=== PATIENT | male | born 1965 | race Caucasian/White ===

== ENCOUNTER 2024-11-29 13:26 | Emergency (ER) | payer OTHER, SELFPAY ==
[2024-11-29 13:27] VITALS: BP 139/113; PULSE 74; RESP 16; TEMP 37.1; O2SAT 99; BMI 33.7
--- NOTE | 2024-11-29 13:44 | CT_ITS ---
PROCEDURE: ABDOMEN/PELVIS WITHOUT CONT 11/29/2024 REASON FOR EXAM: LLQ ABDOMINAL PAIN TECHNIQUE: Abdomen and pelvis CT without intravenous contrast. Noncontrast technique limits evaluation of the abdominal and pelvic viscera. Coronal and Sagittal reconstruction series were provided. One or more dose reduction techniques were used (e.g., Automated exposure control, adjustment of the mA and/or kV according to patient size, use of iterative reconstruction technique). PATIENT PREPARATION: Per protocol ORAL CONTRAST TYPE: None. AMOUNT: mL COMPARISON: None. FINDINGS: The peripheral soft tissues unremarkable. Degenerative changes of the spine. Grade 1 anterolisthesis of L5 on S1 with a bilateral L5 pars defect. Mild atherosclerosis. Normal caliber abdominal aorta. No suspicious lymphadenopathy. Hepatomegaly and hepatic steatosis. Distended gallbladder. The spleen and adrenals are unremarkable. Left ureterovesicular junction 4 mm calculus with mild upstream hydroureteronephrosis. Left perinephric stranding which may represent back pressure, but infection can not be excluded.. Additional small nonobstructive bilateral renal calculi. Normal caliber large and small bowel. Dense colonic stool. CT/Abdomen/Pelvis without Cont IMPRESSION: Left distal ureter 4 mm calculus with mild upstream hydroureteronephrosis. Left kidney perinephric stranding which may represent back pressure, but pyelon ephritis can not be excluded. Additional bilateral nephrolithiasis. Dense colonic stool which may suggest constipation. Hepatomegaly and hepatic steatosis. Reading Location: [place] [id number]
--- NOTE | 2024-11-29 13:44 | EDS_ITS ---
HPI History of Present Illness Chief Complaint: Flank Pain Detail of Chief Complaint: Left lower quadrant abdominal pain Informant: patient and family Narrative Narrative: Patient presents to the emergency department with complaint of left lower quadrant pain that started yesterday initially. This morning it was not so severe but became progressively more painful. Currently rates pain a 9 out of 10. Patient had some nausea and vomiting yesterday but none today. He has history of kidney stones. He thinks he passed a stone about 4 weeks ago. He has passed about 4 stones in his lifetime. He does not see a urologist. He denies hematuria or dysuria. He denies fever. Patient also has history of diverticulitis. Denies prior abdominal surgeries. [facility] Medical History (Updated 11/29/24 @ 15:[address] Sharon Lara, DO) Depression High cholesterol Home Medications ?Medication ?Instructions ?Recorded ?Last Taken ?Type Pravastatin 10 mg DAILY 02/25/16 Unknown History aspirin 81 mg tablet,delayed 81 mg PO DAILY 02/26/16 U nknown History release (Adult Low Dose Aspirin) ondansetron 4 mg disintegrating 4 mg PO Q8H PRN PRN Na usea #10 tabs 02/26/16 Unknown Rx tablet oxycodone-acetaminophen 5 mg-325 1 tab PO Q6H PRN PRN Pain ##14 02/26/16 Unknown Rx mg tablet hydrocodone-acetaminophen 5-325mg 1 tab PO Q4H PRN PRN Pain 2 days 11/29/24 Unknown Rx 5mg-325mg #10 TABLETS naproxen 500 mg tablet 500 mg PO BID #14 tabs 11/29 Unknown Rx ondansetron 4 mg disintegrating 4 mg PO Q8H PRN PRN Na usea #10 tabs 11/29/24 Unknown Rx tablet Allergy/AdvReac Type Severity Reaction Status Date / Time lovastatin AdvReac Other Verified 11/29/24 13:27 Social History Smoking Status: Never smoker ROS ROS ED Review of Systems ROS Unobtainable: other Constitutional Constitutional ED: Reports lethargy; Denies chills, fever(s), sweats or weight loss Eyes Eyes: Denies blurry vision, change in vision or diplopia ENT ENT ED: Denies rhinorrhea or sore throat Cardiovascular Cardiovascular: Denies chest pain, orthopnea or racing heartbeat Respiratory/Chest Respiratory/Chest: Denies cough, dyspnea, dyspnea on exertion, orthopnea or sputum Gastrointestinal Gastrointestinal: Reports abdominal pain, nausea and vomiting; Denies diarrhea Genitourinary Genitourinary ED: Denies dysuria, hematuria or urinary frequency Musculoskeletal Musculoskeletal: Denies arthralgias, back pain, myalgias or neck pain Integumentary Denies abscess, Abrasions or rash Neurologic Neurologic: Denies headache(s) or weakness Psychiatric Psychiatric: Denies anxiety, depression or suicidal thoughts Endocrine Endocrinology: Denies polydipsia, polyphagia or polyuria Hematologic/Lymphatic Hematologic/Lymphatic: Denies easy bleeding, easy bruising or lymphadenopathy Allergic/Immunologic Allergic/Immunologic ED: Denies mouth swelling, tongue swelling or urticaria EXAM Physical Exam Const Vital Signs: 11/29/24 13:27 Temperature 98.7 F Temperature Source Oral Pulse Rate 74 Respiratory Rate 16 Blood Pressure 139/113 H Blood Pressure Mean 121 Pulse Ox 99 Oxygen Delivery Method Room Air Positive well nourished and well developed General Appearance ED: well developed and NAD HEENT Reports TM's clear and moist mucous membranes normocephalic and atraumatic; Negative for trauma or tenderness Tympanic Membrane ED: Yes TM's clear Eyes PERRL and EOMs intact bilaterally General Eye ED: Negative for pale conjunctiva or scleral icterus Neck no lymphadenopathy, supple and no JVD General: Negative for tenderness Chest Wall inspection of chest normal and palpation of chest normal Chest: Negative for tenderness Resp normal respiratory effort and clear to auscultation bilaterally Effort and Inspection: Negative for respiratory distress or pain with movement Auscultation: Negative for rhonchi, wheezes or diminished lung sounds Cardio regular rate, regular rhythm, S1 normal heart sound, S2 normal heart sound and no murmurs Peripheral Pulses: pulses 2+ throughout GI normal to inspection, nondistended, normoactive bowel sounds, soft to palpation, non-distended and no masses GI Narrative: Tenderness palpation over left lower quadrant some guarding. There is no rebound, rigidity, peritoneal signs. No mass palpated. No significant CVA tenderness on exam Back/Spine no CVA tenderness and no thoracic nor lumbar tenderness Extremity normal to inspection General Extremety ED: Negative for edema General Extremity: Negative for edema Neuro oriented x3, CN's II-XII intact bilaterally, no sensory deficits noted and gait normal Sensorium / Orientation: awake, alert, oriented to person, oriented to place and oriented to time Motor Exam: strength 5/5 throughout and strength abnormal Psych mental status grossly normal Skin no rashes or lesions noted and no wounds MDM MDM MDM Narrative Medical decision making narrative: Patient presents with left-sided flank pain with history of kidney stones. Clinically looks well. Established. CBC with differential obtained showed white count of 13.4 with hemoglobin 16 and platelet count of 175. Chemistries unremarkable. Urinalysis negative for infection. CT scan of the abdomen pelvis obtained showed a 4 mm left UVJ stone with hydroureter and hydronephrosis. He has some perinephric stranding likely due to back pressure but they could not rule out pyelonephritis. Clinically he does not have pyelonephritis and his urine is negative for infection. Patient was medicated with Zofran as well as Toradol and hydromorphone and had good pain relief with that. This point he will be discharged to home. He will be given urine strainers. He is given referral to urology. Given a prescription for [place] as well as Zofran. Advised to return if worsening pain, fever, vomiting, or condition should worsen anyway. Lab Data Attestation: I reviewed the patient's lab results. Labs: Laboratory Results - last 24 hr 11/29/24 11/29/24 13:45 13:50 WBC 13.4 H RBC 4.94 Hgb 16.3 Hct 45.5 MCV 92.1 MCH 33.0 H MCHC 35.8 RDW Std Deviation 41.0 RDW Coeff of Reggie 12.1 Plt Count 175 MPV 9.7 Immature Gran % (Auto) 0.400 Neut % (Auto) 78.8 H Lymph % (Auto) 12.6 L [place] % (Auto) 8.0 Eos % (Auto) 0.1 Baso % (Auto) 0.1 Absolute Neuts (auto) 10.6 H Absolute Lymphs (auto) 1.69 Nucleated RBC % 0 Sodium 137 Potassium 4.3 Chloride 101 Carbon Dioxide 22.3 Anion Gap 14 BUN 22 H Creatinine 1.56 H Estim Creat Clear Calc 65.07 Est GFR (MDRD) Non-Af 51 L BUN/Creatinine Ratio 14.1 Glucose 189 H Calcium 9.5 Urine Color Yellow Urine Clarity Clear Urine pH 6.5 Ur Specific [place] 1.005 Urine Protein TNP Urine Glucose (UA) Normal Urine Ketones Negative Urine Occult Blood Negative Urine Nitrite Negative Urine Bilirubin Negative Urine Urobilinogen Normal Ur Leukocyte Esterase Negative Urine RBC 0 SEEN Urine WBC 0 SEEN Ur Squamous Epith Cells 0 SEEN Urine Bacteria 0 SEEN Urine Mucus 0 SEEN Radiography Diagnostic Testing: Clinical Impression(s) from Imaging Studies Abdomen/Pelvis CT 11/29/24 13:44 IMPRESSION: Left distal ureter 4 mm calculus with mild upstream hydroureteronephrosis. Left kidney perinephric stranding which may represent back pressure, but pyelonephritis can not be excluded. Additional bilateral nephrolithiasis. Dense colonic stool which may suggest constipation. Hepatomegaly and hepatic steatosis. Reading Location: [place] [id number] Discharge Plan Triage Chief Complaint: Flank Pain ED Provider: Sharon Lara Dx/Rx/DC Orders Clinical Impression: Urolithiasis Instructions: ED Kidney Stone with Pain Prescriptions: New hydrocodone-acetaminophen 5-325 mg tablet 1 tab PO Q4H PRN PRN (Reason: Pain) 2 Days Qty: 10 0RF ondansetron 4 mg tablet,disintegrating 4 mg PO Q8H PRN PRN (Reason: Nausea) Qty: 10 0RF naproxen 500 mg tablet 500 mg PO BID Qty: 14 0RF No Action Pravastatin 10 mg DAILY oxycodone-acetaminophen 1 TABLET tablet 1 tab PO Q6H PRN PRN (Reason: Pain) Qty: 14 0RF ondansetron 4 MG tablet 4 mg PO Q8H PRN PRN (Reason: Nausea) Qty: 10 0RF aspirin [Adult Low Dose Aspirin] 81 MG tablet,delayed release (DR/EC) 81 mg PO DAILY Primary Care Provider: Amauri Canchola Referrals: Amauri Canchola MD [Primary Care Provider] - Miguel Beatty MD [Med Staff - Active Staff] - 3-5 Days Print Language: [place]ian Disposition Disposition: Home, Self Care
[2024-11-29] MEDS: Ondansetron 4 MG/2 ML Vial IV (13:55)
[2024-11-29] MEDS: Ketorolac 15 MG/ML Vial IV (13:55)
[2024-11-29] MEDS: 0.9% Normal Saline (1000mL) 1,000 ML 150 ML IV (13:55)
[2024-11-29] MEDS: HYDROmorphone 1 MG/ML Syringe IV (13:56)
[2024-11-29 14:04] LABS: Bacteria 0 SEEN /hpf (None Seen); Mucous, Urine 0 SEEN /hpf (<or=2+); Red Blood Cells-Urine 0 SEEN /hpf (0-5); Squamous Epithelial Cells - UA 0 SEEN /hpf (0-5); White Blood Cells 0 SEEN /hpf (0-5)
[2024-11-29 14:07] LABS: Absolute Lymphocyte Count 1.69 X10^3/uL (0.83-4.51); Absolute Neutrophil Count 10.6 X10^3/uL (2.0-7.7); Basophil# 0.02 X10^3/uL; Basophil% 0.1 % (0-1); Eosinophil# 0.01 X10^3/uL; Eosinophils% 0.1 % (0-5); Hematocrit 45.5 % (40-54); Hemoglobin 16.3 g/dL (13.0-16.5); Lymphocyte # 1.69 X10^3/ul (0.83-4.51); Lymphocyte % 12.6 % (19-41); Mean Corp Hgb Conc 35.8 g/dL (32-36); Mean Corpuscular Volume 92.1 fL (80-94); Mean Platelet Vol. 9.7 fl (6.2-12.0); Monocyte# 1.07 X10^3/uL; NRBC Flagged by Analyzer 0 % (0-5); Neutrophil # 10.57 X10^3/uL (2.7-7.7); Neutrophil % 78.8 % (47-70); Platelet Count 175 K/mm3 (150-450); RBC Distribution Width CV 12.1 % (11.6-14.6); Red Blood Count 4.94 M/mm3 (4.6-6.2); White Blood Count 13.4 K/mm3 (4.4-11.0)
[2024-11-29 14:07] LABS: Color, Urine Yellow (Yellow); Glucose, Dipstick Normal (Normal); Ketone-Dipstick Negative (Negative); Leukocyte Esterase-Dipstick Negative /ul (Negative); Nitrite-Dipstick Negative (Negative); Occult Blood-Urine Negative /ul (Negative); Specific Gravity, Urine 1.005 (1.002-1.030); Urine Bilirubin Dipstick Negative (Negative); Urine Clarity Clear (Clear); Urine Urobilinogen Normal (Normal); Urine pH 6.5 (5.0 - 8.0)
[2024-11-29 14:45] LABS: Anion Gap 14 (5-15); BUN 22 mg/dL (4-19); BUN/Creat Ratio 14.1 RATIO (10-20); Calcium,Total 9.5 mg/dL (7.6-11.0); Carbon Dioxide 22.3 mmol/L (21.0-32.0); Chloride 101 mmol/L (98-108); Creatinine, Serum 1.56 mg/dL (0.70-1.20); EST Glomerular Filtration Rate 51 (>60); Estimated Creatinine Clearance 65.07 ml/min (50-250); Glucose 189 mg/dL (70-99); Potassium 4.3 mmol/L (3.3-5.1); Sodium Level 137 mmol/L (133-145)
[2024-11-29 15:27] VITALS: BP 134/78; PULSE 76; RESP 18; TEMP 36.6; O2SAT 99
== END 2024-11-29 15:36 | disposition home or self-care (01) ==
PROVIDERS: Emergency Provider Emergency Medicine; PCP Family Medicine; Visit Provider Emergency Medicine
DX: N13.2 Hydronephrosis with renal and ureteral calculous obstruction (principal); N13.4 Hydroureter; E78.00 Pure hypercholesterolemia, unspecified; Z79.899 Other long term (current) drug therapy
CPT/HCPCS: 74176; 80048; 81001; 85025; 96361; 96374; 96375; 99283; A4216; J2405